=== PATIENT | female | born 1930 | race Caucasian/White ===

== ENCOUNTER 2016-10-11 09:50 | Observation (INO) | payer OTHER, MEDICARE ==
[~2016-10-11] VITALS: Ht 158.8 cm; Wt 46.0 kg
[2016-10-11] MEDS ORDERED: LO-DOSE ASPIRIN81 M2 PO (10:19)
[2016-10-11] MEDS ORDERED: IRON325 MG PO (10:19)
[2016-10-11] MEDS ORDERED: LORATADINE10 M2 PO (10:20)
[2016-10-11] MEDS ORDERED: MECLIZINE HCL25 MG PO (10:21)
[2016-10-11] MEDS ORDERED: NEXIUM 24HR20 MG PO (10:22)
[2016-10-11] MEDS ORDERED: VERAPAMIL HCL120 M1 PO (10:22)
[2016-10-11] MEDS ORDERED: VIACTIV SOFT C1 EACH PO (10:23)
[2016-10-11] MEDS ORDERED: VITAMIN D31000 UNI2 PO (10:23)
[2016-10-11 10:40] LABS: EOSINOPHIL (%) 0.9 % (0-5); EOSINOPHIL COUNT 0.1 K/uL (0-0.3); HEMATOCRIT 43.1 % (36.0-46.0); IMMATURE GRANULOCYTE (%) 0.3 % (0.0-0.7); INSTRUMENT ABS NEUTROPHIL CT 5.7 K/uL; LYMPHOCYTE COUNT 1.2 K/uL (1.0-2.8); MCH 29.1 PG (29.0-34.0); MCHC 32.7 G/DL (30.0-36.0); MCV 88.9 FL (83-99); MEAN PLAT.VOLUME 9.7 uM^3 (9.5-12.4); MONOCYTE (%) 6.1 % (3-12); MONOCYTE COUNT 0.5 K/uL (0-0.8); NEUTROPHIL (%) 75.9 % (45-76); NEUTROPHIL COUNT 5.7 K/uL (1.8-6.4); PLATELET COUNT 278 K/uL (156-360); RBC DIS.WIDTH-CV 12.4 % (11.8-14.6); RBC DIS.WIDTH-SD 40.9 % (39-53); RED BLOOD COUNT 4.85 M/uL (3.80-5.20); WHITE BLOOD COUNT 7.5 K/uL (4.1-10.2)
[2016-10-11 10:51] LABS: CHLORIDE 106 mEq/L (99-109); SODIUM 141 mEq/L (136-147)
[2016-10-11 10:53] LABS: GLUCOSE 96 mg/dL (70-99)
[2016-10-11 10:55] LABS: ANION GAP 9 MEQ/L (2-14); TOTAL BILIRUBIN 0.6 mg/dL (0.0-1.0)
[2016-10-11 10:57] LABS: ALKALINE PHOSPHATASE 124 IU/L (3-129); GFR ESTIMATE (CALCULATED) > 59 mL/min/
[2016-10-11 10:58] LABS: UREA NITROGEN (BUN) 19 mg/dL (9-23)
[2016-10-11 11:01] LABS: TROP-I INTERPRETATION NEGATIVE; TROPONIN-I < 0.01 ng/mL (0.0-0.30)
[2016-10-11 12:01] LABS: ADD MIUA? YES; BILIRUBIN NEGATIVE; BLOOD NEGATIVE; COLOR STRAW ((YELLOW)); GLUCOSE (STRIP) NEGATIVE; KETONES NEGATIVE; LEUKOCYTES TRACE; NITRITE NEGATIVE; PROTEIN (STRIP) NEGATIVE; SPECIFIC GRAVITY 1.004 (1.000-1.030); UROBILINOGEN 0.2 MG/DL (0.2-1.0)
[2016-10-11 13:20] LABS: BACTERIA NONE SEEN /HPF; EPITHELIAL CELLS RARE /HPF; MUCUS NONE SEEN /LPF; RED BLOOD CELLS NONE SEEN /HPF (0-5); UCUL ADDED? NO; WHITE BLOOD CELLS 0-5 /HPF (0-5)
[2016-10-11 13:44] LABS: D-DIMER ELISA 0.58 mg/L FEU (< 0.57)
[2016-10-11 16:35] VITALS: BP 176/86
[2016-10-11 17:42] LABS: TROP-I INTERPRETATION NEGATIVE; TROPONIN-I 0.01 ng/mL (0.0-0.30)
[2016-10-11 20:04] VITALS: BP 141/72
[2016-10-11 23:41] LABS: TROP-I INTERPRETATION NEGATIVE; TROPONIN-I < 0.01 ng/mL (0.0-0.30)
[2016-10-12 00:10] VITALS: BP 151/74
[2016-10-12 04:25] VITALS: BP 139/75
[2016-10-12 08:30] VITALS: BP 174/97
[2016-10-12 12:02] VITALS: BP 176/78
== END 2016-10-12 16:36 | disposition home health service (06) ==
LOC: EME 09:50 → EDOF 13:12 → 5WEST 15:45
PROVIDERS: Emergency Medicine; Internal Medicine
DX: R07.9 Chest pain, unspecified (principal); R06.02 Shortness of breath; I10 Essential (primary) hypertension; F41.9 Anxiety disorder, unspecified
CPT/HCPCS: 70450; 71020; 71275; 80053; 81003; 84484; 85025; 85379; 93005; 93970; 99202; 99281; 99285; G0378; J1650

== ENCOUNTER 2016-11-21 22:43 | Emergency (ER) | payer OTHER, MEDICARE ==
[~2016-11-21] VITALS: Ht 160 cm; Wt 52.4 kg
[~2016-11-21 22:43] MED LIST: IRON325 MG PO; LO-DOSE ASPIRIN81 M2 PO; LORATADINE10 M2 PO; MECLIZINE HCL25 MG PO; NEXIUM 24HR20 MG PO; VERAPAMIL HCL120 M1 PO; VIACTIV SOFT C1 EACH PO; VITAMIN D31000 UNI2 PO
[2016-11-21 23:45] LABS: HEMATOCRIT 40.1 % (36.0-46.0); MCH 29.1 PG (29.0-34.0); MCHC 32.9 G/DL (30.0-36.0); MCV 88.3 FL (83-99); MEAN PLAT.VOLUME 9.8 uM^3 (9.5-12.4); PLATELET COUNT 277 K/uL (156-360); RBC DIS.WIDTH-CV 12.7 % (11.8-14.6); RBC DIS.WIDTH-SD 40.5 % (39-53); RED BLOOD COUNT 4.54 M/uL (3.80-5.20); WHITE BLOOD COUNT 8.7 K/uL (4.1-10.2)
[2016-11-21 23:53] LABS: CHLORIDE 109 mEq/L (99-109); POTASSIUM 4.2 mEq/L (3.7-5.4); SODIUM 142 mEq/L (136-147)
[2016-11-21 23:55] LABS: GLUCOSE 102 mg/dL (70-99)
[2016-11-21 23:56] LABS: ANION GAP 9 MEQ/L (2-14)
[2016-11-21 23:59] LABS: GFR ESTIMATE (CALCULATED) > 59 mL/min/
[2016-11-22] LABS: UREA NITROGEN (BUN) 20 mg/dL (9-23)
[2016-11-22] LABS: ADD MIUA? YES; BILIRUBIN NEGATIVE; BLOOD NEGATIVE; COLOR STRAW ((YELLOW)); GLUCOSE (STRIP) NEGATIVE; KETONES NEGATIVE; LEUKOCYTES MODERATE; NITRITE NEGATIVE; PROTEIN (STRIP) NEGATIVE; SPECIFIC GRAVITY 1.005 (1.000-1.030); UROBILINOGEN 0.2 MG/DL (0.2-1.0)
[2016-11-22 00:03] LABS: BACTERIA NONE SEEN /HPF; EPITHELIAL CELLS NONE SEEN /HPF; MUCUS NONE SEEN /LPF; RED BLOOD CELLS 0-5 /HPF (0-5); UCUL ADDED? NO
[2016-11-22 05:48] VITALS: BP 187/84
== END 2016-11-22 05:49 | disposition home or self-care (01) ==
LOC: EME 22:43
PROVIDERS: Emergency Medicine
DX: S20.221A Contusion of right back wall of thorax, initial encounter (principal); W08.XXXA Fall from other furniture, initial encounter; Y92.009 Unspecified place in unspecified non-institutional (private) residence as the place of occurrence of the external cause; I10 Essential (primary) hypertension; N39.0 Urinary tract infection, site not specified; Z88.5 Allergy status to narcotic agent
CPT/HCPCS: 71100; 72100; 80048; 81003; 85027; 93005; 99281; 99285

== ENCOUNTER 2017-08-04 13:11 | Observation (INO) | payer OTHER, MEDICARE ==
[~2017-08-04] VITALS: Ht 152.4 cm; Wt 43.4 kg
[~2017-08-04 13:11] MED LIST changes: -NEXIUM 24HR20 MG PO; +NEXIUM20 MG PO
[2017-08-04 13:49] LABS: BASOPHIL (%) 0.6 % (0-1); BASOPHIL COUNT 0.1 K/uL (0-0.1); EOSINOPHIL COUNT 0.2 K/uL (0-0.3); HEMATOCRIT 39.3 % (36.0-46.0); HEMOGLOBIN 13.2 G/DL (11.9-15.5); IMMATURE GRANULOCYTE (%) 0.5 % (0.0-0.7); LYMPHOCYTE (%) 16.7 % (15-42); LYMPHOCYTE COUNT 1.3 K/uL (1.0-2.8); MCH 29.1 PG (29.0-34.0); MCHC 33.6 G/DL (30.0-36.0); MCV 86.8 FL (83-99); MONOCYTE (%) 7.1 % (3-12); MONOCYTE COUNT 0.6 K/uL (0-0.8); NEUTROPHIL (%) 73.1 % (45-76); NEUTROPHIL COUNT 5.8 K/uL (1.8-6.4); PLATELET COUNT 284 K/uL (156-360); RBC DIS.WIDTH-CV 12.7 % (11.8-14.6); RBC DIS.WIDTH-SD 40.1 % (39-53); RED BLOOD COUNT 4.53 M/uL (3.80-5.20); WHITE BLOOD COUNT 7.9 K/uL (4.1-10.2)
[2017-08-04 13:57] LABS: CHLORIDE 105 mEq/L (99-109); POTASSIUM 3.8 mEq/L (3.7-5.4); SODIUM 137 mEq/L (136-147)
[2017-08-04 13:59] LABS: GLUCOSE 113 mg/dL (70-99)
[2017-08-04 14:03] LABS: CREATININE 0.8 mg/dL (0.6-1.3); GFR ESTIMATE (CALCULATED) > 59 mL/min/
[2017-08-04 14:04] LABS: UREA NITROGEN (BUN) 21 mg/dL (9-23)
[2017-08-04] MEDS ORDERED: MECLIZINE HCL25 MG PO (19:01)
[2017-08-04 22:46] VITALS: BP 176/84
[2017-08-04 22:47] VITALS: BP 162/78
[2017-08-05 04:22] VITALS: BP 133/68
[2017-08-05 08:10] VITALS: BP 197/84
[2017-08-05 11:52] VITALS: BP 145/77
[2017-08-05 16:26] VITALS: BP 143/63
[2017-08-05 20:00] VITALS: BP 134/69; BP 138/72
[2017-08-06] VITALS (7 sets, daily range): BP systolic 128–156; BP diastolic 58–75
[2017-08-07 03:35] VITALS: BP 138/77
[2017-08-07 08:40] VITALS: BP 161/76
[2017-08-07 12:16] VITALS: BP 151/73
[2017-08-07 16:04] VITALS: BP 176/75
[2017-08-07 16:09] LABS: APPEARANCE CLEAR ((CLEAR)); BILIRUBIN NEGATIVE; BLOOD NEGATIVE; COLOR STRAW ((YELLOW)); GLUCOSE (STRIP) NEGATIVE; KETONES NEGATIVE; LEUKOCYTES NEGATIVE; NITRITE NEGATIVE; PROTEIN (STRIP) NEGATIVE; SPECIFIC GRAVITY 1.005 (1.000-1.030); UCUL ADDED? NO; UROBILINOGEN 0.2 MG/DL (0.2-1.0)
[2017-08-07 18:36] VITALS: BP 160/75
[2017-08-08 00:33] VITALS: BP 165/84
[2017-08-08 04:06] VITALS: BP 159/71
[2017-08-08 10:04] VITALS: BP 147/65
[2017-08-08 12:44] VITALS: BP 128/65; BP 156/80
[2017-08-08 18:59] VITALS: BP 150/73
[2017-08-09 01:02] VITALS: BP 140/67
[2017-08-09 05:44] VITALS: BP 161/71
[2017-08-09 07:29] VITALS: BP 169/85
[2017-08-09 10:58] VITALS: BP 166/98
[2017-08-09] MEDS ORDERED: AMLODIPINE BESYL5 MG PO (11:24)
[2017-08-09] MEDS ORDERED: DONEPEZIL HCL5 MG PO (11:24)
[2017-08-09] MEDS ORDERED: DOCUSATE SODIU100 MG PO (11:25)
== END 2017-08-09 12:01 | disposition home or self-care (01) ==
LOC: EME 13:11 → EDOF 21:06 → 5WEST 21:06 → EDOF 21:06 → ENRESERV 21:14 → 5WEST 22:11
PROVIDERS: Emergency Medicine; Hospitalist
DX: H81.10 Benign paroxysmal vertigo, unspecified ear (principal); H81.09 Meniere's disease, unspecified ear; F01.50 Vascular dementia, unspecified severity, without behavioral disturbance, psychotic disturbance, mood disturbance, and anxiety; F41.9 Anxiety disorder, unspecified; R11.2 Nausea with vomiting, unspecified; I47.1 Supraventricular tachycardia; K21.9 Gastro-esophageal reflux disease without esophagitis; Z60.2 Problems related to living alone; Z79.82 Long term (current) use of aspirin; M19.90 Unspecified osteoarthritis, unspecified site; Z68.1 Body mass index [BMI] 19.9 or less, adult; I10 Essential (primary) hypertension; W18.30XA Fall on same level, unspecified, initial encounter; Z88.5 Allergy status to narcotic agent; Z82.3 Family history of stroke; Z82.49 Family history of ischemic heart disease and other diseases of the circulatory system
CPT/HCPCS: 70450; 70551; 71045; 80048; 81003; 85025; 93005; 97127 GO; 99281; 99285; G0378; G8978 GP CJ; G8979 GP CI; G8980 CJ; G8987 GO CJ; G8988 GO CH; G8989 GO CI; J2405